=== PATIENT | female | born 1960 | race Caucasian/White ===

== ENCOUNTER 2018-10-10 08:38 | Day surgery (SDC) | payer OTHER, SELFPAY ==
[2018-10-07 11:04] VITALS: BMI 22.1
[2018-10-10] VITALS (7 sets, daily range): BP systolic 98–126; BP diastolic 61–84; PULSE 65–82; RESP 12–20; TEMP 36.4–36.9; O2SAT 93–99; BMI 22.1
[2018-10-10] MEDS: LACTATED RINGERS 1,000 ML 42 ML IV (09:47)
--- NOTE | 2018-10-10 11:14 | PM.PREOP ---
Pre-operative Note Interval Note History & Physical reviewed/Exam performed by Physician: Yes Changes to H&P: No
[2018-10-10] MEDS: CEFAZOLIN 2 GM/100 ML FROZ.PIGGY IV (11:30)
--- NOTE | 2018-10-10 11:52 | SUR.OPER ---
Supine on padded OR bed, head on pillow, right arm on the arm table under control of surgeon, left arm secured on padded arm boards at <90 degrees abduction, legs uncrossed, safety belt at thigh, tape over blanket over lower legs.
[2018-10-10] MEDS: BUPIVACAINE 0.5% W/ EPI (PF) VIAL 10 ML INJ (11:57)
--- NOTE | 2018-10-10 12:35 | PM.OP.1 ---
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 No significant arthritic changes to the MCP joint. Closure Type: primary Specimen(s): none sent Implants & Drains: Two Arthrex anchors Applied: graft(s) and implant(s) Estimated Blood Loss (mL): 5 Blood products transfused: none Tourniquet time (min): 39 Procedure in detail: On date of service, patient was met in the holding area. Operative site was signed and witnessed by the OR staff. The surgery once again discussed with patient and any remaining questions they had were answered fully. Patient was taken back to the operating theater and placed on the operating table in the supine position. Great care taken to ensure that all bony prominences were properly padded. A well-padded tourniquet was placed up along the upper extremity. A timeout was performed to verify patient's name, procedure, and operative site. The upper extremity was then prepped and draped in the normal sterile fashion. An Esmarch was used to exsanguinate the limb and the tourniquet was turned up to 250 mm mercury. We 1st turned our attention to retrieving the tendon graft. Two small transverse incisions were made over the palmaris longus. One proximal 1 distal. Fifteen blade was used incise through skin and fascial tissue. Pickups and tenotomies were used to dissect down until the palmaris longus was visualized. About 10 cm of tendons were retrieved. This was placed into a moist Ray-Dileep suture. Next, A curvilinear incision was made center over the ulnar aspect of the MCP joint. A 15 blade was used to incise through skin and fascial tissue. Adson pickups and tenotomy scissors were used to dissect down visualizing the ulnar aspect of the MCP joint.The abductor aponeurosis was identified and a curved hemostat was placed underneath it. A 15 blade was used to split the aponeurosis. This gave us good visualization of the MCP joint. Patient did not have a competent ulnar collateral ligament. 2 K-wires were placed. One was placed more dorsally on the metacarpal the 2nd 1 was placed more volarly on the proximal phalanx. Next a drill was used to drill the entry hole for the suture anchors. The palmaris longus as well as labral tape replaced into a forked anchor and placed into the metacarpal which provided a solid tenodesis fixation. Next, the joint was reduced and slightly flexed as the attendant and labral tape were placed into the proximal phalanx. This provided a good reduction of the joint as well as a culver repair and reconstruction of the ulnar collateral ligament. Varus and valgus stress was placed across the joint and there was a very significant correction of her previous laxity. Next the aponeurosis was repaired and the wound was copiously irrigated. The rest of the wound was closed in a layered fashion. A thumb spica splint was placed. The patient was taken to the PACU in stable condition. Complications: none Condition: stable Disposition: PACU Plan for aftercare: The patient will be immobilized until her 1st postop visit. At that point, patient can be placed into a removable brace. She can engage in range of motion exercises of both the wrist as well as the MCP joint of the thumb. But no stressing of the ulnar collateral ligament. At 6 weeks, patient can engage in all activities as tolerated.
--- NOTE | 2018-10-10 14:16 | SUR.PHASEII ---
pt resting, no co's of pain or nausea , hand elevated with ice applied , dressing dci, pt able to move fingers , warm to touch , tolerating fluids and crackers
== END 2018-10-10 14:53 | disposition home or self-care (01) ==
PROVIDERS: PCP Family Medicine; Visit Provider Orthopaedic Surgery
PROC: (CPT 26540; principal; 2018-10-10 10:45)
DX: S63.681A Other sprain of right thumb, initial encounter (principal)
CPT/HCPCS: 26541; J0690; J1100; J2250; J2405; J2704; J3010

== ENCOUNTER → 2023-11-27 12:35 | Outpatient (CLI) | payer OTHER, SELFPAY ==
--- NOTE | 2023-11-27 12:40 | DI.MRI.S_ITS ---
BREAST MRI OF BOTH BREASTS: 11/27/2023 CLINICAL: High Risk screening. PROCEDURE: MR BREAST BI WO/W CON INDICATIONS: High risk for breast cancer TECHNIQUE: The patient was placed prone in a dedicated breast imaging coil. Precontrast axial STIR and 3D FLASH without fat saturation sequences were obtained. Both before and after bolus injection of contrast, sequential 1-minute axial 3D FLASH with fat saturation sequences for 3 time points, with subtraction images and maximum intensity projections (MIP's) generated. Delayed sagittal FLASH images with fat saturation were also obtained. Computer-aided detection, including computer algorithm analysis of MRI image data for lesion detection and characterization, pharmacokinetic analysis, with further physician review for interpretation, was performed. COMPARISON: Mammogram 11/09/2023, 10/18/2022, 10/10/2021. FINDINGS: Image quality: Diagnostic. There is scattered amount of fibroglandular tissue. There is minimal and symmetric background parenchymal enhancement. Right breast: No suspicious enhancement or lymphadenopathy. Left breast: No suspicious enhancement or lymphadenopathy. IMPRESSION: NEGATIVE No MRI evidence of malignancy. Of note, recommend diagnostic mammogram with possible ultrasound as recommended by recent screening mammogram on 11/09/2023. This exam was interpreted at Station ID: [id number]. Electronically Signed By: Moan West M.D., PH.D eb/:11/27/2023 16:53:28 ACR BI-RADS Category 1: Negative [id number]
== END ==
LOC: MRI 12:38
PROVIDERS: PCP Nurse Practitioner Family; Referring Provider Nurse Practitioner Family; Visit Provider Nurse Practitioner Family
DX: Z91.89 Other specified personal risk factors, not elsewhere classified (principal); R92.8 Other abnormal and inconclusive findings on diagnostic imaging of breast
CPT/HCPCS: 77049; A9579

== ENCOUNTER → 2024-12-27 09:29 | Outpatient (CLI) | payer MEDICARE, OTHER, SELFPAY ==
--- NOTE | 2024-12-27 09:33 | DI.RAD.S_ITS ---
PROCEDURE: XR ANKLE RT 2V INDICATIONS: Heel pain TECHNIQUE: 3 views of the ankle were acquired. COMPARISON: [facility], CR, XR FOOT RT MIN 3V, 12/27/2024, 9:31. FINDINGS: Bones: No fractures or dislocations. Ankle mortise is normally aligned. No suspicious bony lesions. The talar dome demonstrates no mary abnormality. There is a small plantar calcaneal spur Soft tissues: No tibiotalar joint effusion. Achilles tendon appears normal. IMPRESSION: A small plantar calcaneal spur can be seen. Dictated by: Martín Pretty M.D. on 12/27/2024 at 9:16 Approved by: Martín Pretty M.D. on 12/27/2024 at 9:16
--- NOTE | 2024-12-27 09:33 | DI.RAD.S_ITS ---
PROCEDURE: XR FOOT RT MIN 3V INDICATIONS: Heel pain TECHNIQUE: 3 views of the foot were acquired. COMPARISON: [facility], CR, XR ANKLE RT 2V, 12/27/2024, 9:31. FINDINGS: Bones: No fractures or dislocations. No suspicious bony lesions. Generalized degenerative changes are seen. There is a small plantar calcaneal spur seen. Soft tissues: No tibiotalar joint effusion. Achilles tendon appears normal. No significant plantar abnormality can be seen. IMPRESSION: No imaging explanation is found for this patient's presenting symptoms, with a small plantar calcaneal spur noted. Dictated by: Martín Pretty M.D. on 12/27/2024 at 9:15 Approved by: Martín Pretty M.D. on 12/27/2024 at 9:16
== END ==
LOC: RAD 09:32
PROVIDERS: PCP Family Medicine; Referring Provider Physician Assistant; Visit Provider Physician Assistant
DX: M79.671 Pain in right foot (principal); M77.31 Calcaneal spur, right foot
CPT/HCPCS: 73600; 73630

== ENCOUNTER → 2025-01-30 15:45 | Outpatient (CLI) | payer MEDICARE, OTHER, SELFPAY ==
[2025-01-30 16:49] LABS: Alanine Aminotransferase 26 IU/L (<35); Albumin 4.7 g/dL (3.5-5.0); Albumin Globulin Ratio 1.7 (1.0-2.8); Alkaline Phosphatase 41 U/L (38-126); Aspartate Aminotransferase 36 IU/L (14-36); BUN Creatinine Ratio 32.9 (6-22); Bilirubin Total 0.3 mg/dL (0.2-1.3); Blood Urea Nitrogen 23 mg/dL (7-17); Calcium 9.8 mg/dL (8.4-10.2); Carbon Dioxide 27 mmol/L (22-32); Chloride 104 mmol/L (98-107); Estimated Glomerular Filt Rate > 60 mL/min (>60); Globulin 2.8 g/dL (1.7-4.1); Glucose 91 mg/dL (70-99); HEMOLYSIS 20 (0-50); Potassium 4.3 mmol/L (3.4-5.1); Sodium 140 mmol/L (137-145); Total Protein 7.5 g/dL (6.3-8.2)
== END ==
LOC: LAB 15:49
PROVIDERS: PCP Family Medicine; Referring Provider Family Medicine; Visit Provider Family Medicine
DX: M81.0 Age-related osteoporosis without current pathological fracture (principal)
CPT/HCPCS: 36415; 80053